=== PATIENT | female | born 2000 | race Caucasian/White ===

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

== ENCOUNTER 2019-06-22 02:07 | Emergency (ER) | payer MEDICAID ==
[~2019-06-22] VITALS: Ht 170.2 cm; Wt 86.2 kg
[2019-06-22] MEDS ORDERED: TOPAMAX50 MG PO (02:22)
[2019-06-22] MEDS ORDERED: PHENERGAN25 M1 PO (02:23)
[2019-06-22] MEDS ORDERED: TORADOL10 MG PO (02:23)
[2019-06-22 02:24] VITALS: Ht 170.2 cm; Wt 86.2 kg
[2019-06-22] MEDS ORDERED: ZOLOFT50 MG PO (02:24)
[2019-06-22 03:00] LABS: BASOPHILS 0.2 % (0-2); EOSINOPHILS 2.7 % (0-7); HEMATOCRIT 40.7 % (36.0-48.0); HEMOGLOBIN 14.1 g/dL (12-16); IMMATURE GRANULOCYTES 0.2 % (0-5); LYMPHOCYTES 29.9 % (15-50); MCH 31.1 pg (26.0-34.0); MCHC 34.6 g/dL (31.0-37.0); MCV 89.8 fL (80.0-100.0); MEAN PLATELET VOLUME 10.5 fL (7.4-10.4); MONOCYTES 5.7 % (2-11); NEUTROPHILS 61.3 % (40-80); PLATELET COUNT 302 10x3/uL (130-400); RBC 4.53 10x6/uL (4.00-5.40); RDW 13.1 % (11.5-14.5); WBC 11.3 10x3/uL (4.8-10.8)
[2019-06-22 03:03] LABS: CALC OSMOLALITY 284 mosm/kg (275-300); CALCIUM 9.1 mg/dL (8.5-10.1); CARBON DIOXIDE 28.3 mmol/L (21.0-32.0); CHLORIDE - SERUM 105 mmol/L (98-107); CREATININE - SERUM 0.8 mg/dL (0.6-1.3); GLUCOSE 120 mg/dL (74-106); POTASSIUM - SERUM 3.4 mmol/L (3.5-5.1); SODIUM 143 mmol/L (136-145); UREA NITROGEN 10 mg/dL (7-18); eGFR NON AFRICAN AMERICAN > 90 mL/min (90-120)
[2019-06-22 03:08] LABS: APPEARANCE CLEAR (CLEAR); BILIRUBIN NEGATIVE (NEGATIVE); COLOR YELLOW (YELLOW); GLUCOSE NEGATIVE (NEGATIVE); HCG SERUM NEGATIVE (NEGATIVE); KETONE NEGATIVE (NEGATIVE); NITRITE NEGATIVE (NEGATIVE); PROTEIN NEGATIVE (NEGATIVE); SPECIFIC GRAVITY 1.015 (1.005-1.020); UROBILINOGEN NORMAL (NORMAL)
[2019-06-22 03:09] LABS: BACTERIA FEW /hpf (NEGATIVE); EPITHELIAL CELLS 0-5 /hpf (0-5); RED CELLS - URINE 0-5 /hpf (0-5); WHITE CELLS - URINE 0-5 /hpf (NEGATIVE)
[2019-06-22 03:10] LABS: ALBUMIN 3.8 g/dL (3.4-5.0); ALKALINE PHOSPHATASE 114 U/L (46-116); ALT (SGPT) 30 U/L (10-68); AMYLASE - SERUM 14 U/L (25-115); BILIRUBIN - TOTAL 0.56 mg/dL (0.2-1.3); LIPASE 95 U/L (73-393); PROTEIN - SERUM 7.6 g/dL (6.4-8.2)
[2019-06-22] MEDS ORDERED: PEPCID40 MG PO (05:59)
[2019-06-22] MEDS ORDERED: ZOFRAN ODT4 MG/UDTAB PO (05:59)
[2019-06-22 06:07] VITALS: BP 121/79
== END 2019-06-22 06:07 | disposition home or self-care (01) ==
LOC: D.ER 02:07
PROVIDERS: Family Medicine
DX: K52.9 Noninfective gastroenteritis and colitis, unspecified (principal); K29.70 Gastritis, unspecified, without bleeding

== ENCOUNTER 2019-11-29 12:07 | Emergency (ER) | payer MEDICAID ==
[~2019-11-29] VITALS: Ht 170.2 cm; Wt 90.9 kg
[~2019-11-29 12:07] MED LIST changes: +PEPCID40 MG PO; +PHENERGAN25 M1 PO; +TOPAMAX50 MG PO; +TORADOL10 MG PO; +ZOFRAN ODT4 MG/UDTAB PO; +ZOLOFT50 MG PO
[2019-11-29 12:18] VITALS: Ht 170.2 cm; Wt 90.9 kg
[2019-11-29] MEDS ORDERED: SEROQUEL100 MG PO (12:21)
[2019-11-29] MEDS ORDERED: LAMICTAL200 M1 PO (12:21)
[2019-11-29] MEDS ORDERED: KLONOPIN1 MG PO (12:22)
[2019-11-29] MEDS ORDERED: SINGULAIR10 MG PO (12:22)
[2019-11-29] MEDS ORDERED: NEURONTIN600 MG PO (12:22)
[2019-11-29] MEDS ORDERED: CYCLOBENZAPRINE10 MG PO ×2 (12:23→20:43)
[2019-11-29] MEDS ORDERED: METHOCARBAMOL500 MG PO (12:23)
[2019-11-29 15:23] LABS: BILIRUBIN NEGATIVE (NEGATIVE); GLUCOSE NEGATIVE (NEGATIVE); HCG URINE NEGATIVE (NEGATIVE); KETONE NEGATIVE (NEGATIVE); NITRITE NEGATIVE (NEGATIVE); UROBILINOGEN NORMAL (NORMAL)
[2019-11-29] MEDS ORDERED: HYDROCODON-ACE1 EAC7 PO (20:43)
[2019-11-29 20:53] VITALS: BP 132/79
== END 2019-11-29 20:53 | disposition home or self-care (01) ==
LOC: D.ER 12:07
PROVIDERS: Family Medicine
DX: M54.32 Sciatica, left side (principal); M48.061 Spinal stenosis, lumbar region without neurogenic claudication; K21.9 Gastro-esophageal reflux disease without esophagitis

== ENCOUNTER 2020-03-25 13:05 | Inpatient (IN) | payer MEDICAID ==
[~2020-03-25] VITALS: Ht 170.2 cm; Wt 98.6 kg
--- NOTE | ~2020-03-25 | OP ---
PATIENT NAME: AN TESFAYE MEDICAL RECORD: [id number] :99 LOCATION:[id number] ADMISSION DATE:03/25/20 SURGEON: MIKE CULP MD DATE OF OPERATION: 03/26/2020 PREOPERATIVE DIAGNOSES: 1. Acute appendicitis with localized peritonitis. 2. Irritable bowel syndrome. POSTOPERATIVE DIAGNOSES: 1. Acute appendicitis with localized peritonitis. 2. Irritable bowel syndrome. PROCEDURE: Laparoscopic appendectomy. SURGEON: Mike Culp MD REPORT OF PROCEDURE: The patient's abdomen was prepped and draped in sterile fashion. A cutdown was made on the superior aspect of the umbilicus, 0 Vicryls were placed in the fascia bilaterally and the fascia was incised with a 15-blade. I then bluntly entered the peritoneal cavity and placed a 12-mm Elizabeth port. Under direct visualization, a 5-mm trocar was placed in the left lower quadrant and another was placed in the suprapubic region. There was a lot inflammatory changes in the patient's right lower quadrant. As we peeled back the omentum, we were able to see severely inflamed and swollen appendix with no signs of gangrene or perforation. There was no surrounding fluid collections. We were able to dissect this appendix off of its surrounding attachments and eventually made a window at the base of the mesoappendix. The mesoappendix was then transected with a 45 white load Endo-THUAN stapler. The appendix was then transected at its cecal base using a 45 blue load Endo-THUAN stapler. The appendix was placed into an Endo Catch bag. We irrigated out the right lower quadrant and assured there was no sign of any bleeding. The ports and insufflation were then removed and the appendix was taken out through the umbilicus. The umbilical fascia was closed with interrupted 0 Vicryls times 3. The wounds were then irrigated out with normal saline and infused with 10 mL of 0.25% Marcaine with epinephrine. The skin incisions were closed with subcutaneous 5-0 Monocryl and dressed appropriately. COMPLICATIONS: None. CONDITION: Stable. ANESTHESIA: General endotracheal and local. BLOOD LOSS: Minimal. TRANSINT:[id number] Voice Confirmation ID: [id number] DOCUMENT ID: [id number] OPERATIVE REPORT [id number] AN TESFAYE MIKE CULP MD CC: [id number] DICTATION DATE: 03/26/20 1132 ACCREDITATION MANAGER: 03/26/20 1344 ADM IN [facility] [address] [facility]
[~2020-03-25 13:05] MED LIST changes: +CYCLOBENZAPRINE10 MG PO; +HYDROCODON-ACE1 EAC7 PO; +KLONOPIN1 MG PO; +LAMICTAL200 M1 PO; +METHOCARBAMOL500 MG PO; +NEURONTIN600 MG PO; +SEROQUEL100 MG PO; +SINGULAIR10 MG PO
[2020-03-25 13:24] LABS: BILIRUBIN NEGATIVE (NEGATIVE); KETONE SMALL mg/dL (NEGATIVE); NITRITE NEGATIVE (NEGATIVE); UROBILINOGEN NORMAL (NORMAL)
[2020-03-25 13:25] LABS: HCG URINE NEGATIVE (NEGATIVE)
[2020-03-25 13:37] LABS: BASOPHILS 0.1 % (0-2); EOSINOPHILS 0.3 % (0-7); HEMATOCRIT 42.9 % (36.0-48.0); HEMOGLOBIN 15.1 g/dL (12-16); IMMATURE GRANULOCYTES 0.4 % (0-5); LYMPHOCYTES 6.9 % (15-50); MCH 32.3 pg (26.0-34.0); MCHC 35.2 g/dL (31.0-37.0); MCV 91.7 fL (80.0-100.0); MEAN PLATELET VOLUME 10.5 fL (7.4-10.4); MONOCYTES 4.9 % (2-11); NEUTROPHILS 87.4 % (40-80); PLATELET COUNT 269 10x3/uL (130-400); RBC 4.68 10x6/uL (4.00-5.40); RDW 13.2 % (11.5-14.5); WBC 15.5 10x3/uL (4.8-10.8)
[2020-03-25 13:43] LABS: CALC OSMOLALITY 279 mosm/kg (275-300); CALCIUM 9.5 mg/dL (8.5-10.1); CARBON DIOXIDE 24.1 mmol/L (21.0-32.0); CHLORIDE - SERUM 103 mmol/L (98-107); GLUCOSE 139 mg/dL (74-106); SODIUM 140 mmol/L (136-145); UREA NITROGEN 9 mg/dL (7-18); eGFR NON AFRICAN AMERICAN 75 mL/min (90-120)
[2020-03-25 13:49] LABS: ALBUMIN 3.9 g/dL (3.4-5.0); ALKALINE PHOSPHATASE 102 U/L (30-120); ALT (SGPT) 14 U/L (10-68); AMYLASE - SERUM 15 U/L (25-115); BILIRUBIN - TOTAL 1.27 mg/dL (0.2-1.3); LIPASE 39 U/L (73-393); PROTEIN - SERUM 8.1 g/dL (6.4-8.2)
--- NOTE | 2020-03-25 14:45 | NUR ---
PT LAYING IN BED NO DISTRESS NOTED. SO AT BEDSIDE WILL CONTINUE TO MONITOR.
[2020-03-25 14:51] VITALS: BP 148/84
[2020-03-25 15:01] VITALS: BP 158/83
[2020-03-25 16:00] VITALS: BP 121/79
[2020-03-25 17:00] VITALS: BP 109/65
--- NOTE | 2020-03-25 17:05 | NUR ---
COVID SWAB OBTAINED. RESPIRATIONS ARE EVEN AND UNLABORED. NO DISTRESS NOTED. WILL CONTINUE TO MONITOR.
--- NOTE | 2020-03-25 17:34 | NUR ---
PT C/O NAUSEA ADMINISTERED PRN ZOFRAN.
--- NOTE | 2020-03-25 18:06 | NUR ---
ARRIVED TO UNIT PER W/C, WILL REVIEW ORDERS, FAMILY PRESENT
[2020-03-25 18:10] VITALS: BP 133/77
[2020-03-25] MEDS ORDERED: KLONOPIN1 MG (18:32)
[2020-03-25] MEDS ORDERED: LAMICTAL200 M1 (18:34)
[2020-03-25] MEDS ORDERED: HYDROCODON-ACE1 EA10 PO ×2 (18:35→18:36)
[2020-03-25] MEDS ORDERED: ED-SPAZ0.125 MG PO (18:40)
[2020-03-25] MEDS ORDERED: LINZESS72 MCG PO (18:41)
[2020-03-25] MEDS ORDERED: ZONISAMIDE50 MG PO (18:42)
--- NOTE | 2020-03-25 20:00 | NUR ---
SUPINE IN BED, A&O X 4. PAIN 10/10 TO ABDOMEN. S/O AT BEDSIDE. CONSENT INFORMATION PACKETS GIVEN. WISHES TO SPEAK WITH ANESTHESIOLOGIST PRIOR TO SURGERY. CTM.
[2020-03-26 02:42] VITALS: BP 133/77; BMI 34.0
[2020-03-26 06:14] LABS: BASOPHILS 0.1 % (0-2); EOSINOPHILS 0.2 % (0-7); HEMATOCRIT 38.3 % (36.0-48.0); HEMOGLOBIN 13.1 g/dL (12-16); IMMATURE GRANULOCYTES 0.3 % (0-5); MCH 31.3 pg (26.0-34.0); MCHC 34.2 g/dL (31.0-37.0); MCV 91.6 fL (80.0-100.0); MEAN PLATELET VOLUME 10.3 fL (7.4-10.4); MONOCYTES 6.2 % (2-11); NEUTROPHILS 85.2 % (40-80); PLATELET COUNT 239 10x3/uL (130-400); RBC 4.18 10x6/uL (4.00-5.40); RDW 13.2 % (11.5-14.5); WBC 15.6 10x3/uL (4.8-10.8)
[2020-03-26 06:49] VITALS: BP 121/73
[2020-03-26 07:03] LABS: ALKALINE PHOSPHATASE 84 U/L (30-120); ALT (SGPT) 17 U/L (10-68); BILIRUBIN - TOTAL 1.64 mg/dL (0.2-1.3); CALCIUM 8.2 mg/dL (8.5-10.1); CARBON DIOXIDE 21.6 mmol/L (21.0-32.0); CHLORIDE - SERUM 103 mmol/L (98-107); CREATININE - SERUM 0.8 mg/dL (0.6-1.3); GLUCOSE 103 mg/dL (74-106); POTASSIUM - SERUM 3.4 mmol/L (3.5-5.1); PROTEIN - SERUM 6.2 g/dL (6.4-8.2); SODIUM 138 mmol/L (136-145); eGFR NON AFRICAN AMERICAN > 90 mL/min (90-120)
[2020-03-26 07:04] LABS: CALC OSMOLALITY 272 mosm/kg (275-300); UREA NITROGEN 5 mg/dL (7-18)
[2020-03-26 08:28] VITALS: Ht 170.2 cm; Wt 98.6 kg
[2020-03-26 09:03] VITALS: BP 125/73
[2020-03-26] MEDS ORDERED: HYDROCODON-ACE1 EA10 PO (11:33)
[2020-03-26] MEDS ORDERED: BACTRIM DS TAB1 EAC1 PO (11:34)
[2020-03-26 12:02] VITALS: BP 124/63
--- NOTE | 2020-03-26 15:36 | NUR ---
DISCHARGE PAPERWORK SIGNED, ALL QUESTIONS ANSWERED. IV TO LEFT AC DC'D, TIP INTACT. ESCORTED OUT VIA WHEELCHAIR.
== END 2020-03-26 15:38 | disposition home or self-care (01) | DRG 343 ==
LOC: D.ER 13:05 → D.MS 14:54
PROVIDERS: Family Medicine; ADMIT Surgery; ATTEND Surgery
PROC: 0DTJ4ZZ Resection of Appendix, Percutaneous Endoscopic Approach (ICD-10-PCS; principal; 2020-03-26 09:00)
DX: K35.30 Acute appendicitis with localized peritonitis, without perforation or gangrene (principal); K58.9 Irritable bowel syndrome, unspecified; K21.9 Gastro-esophageal reflux disease without esophagitis; F17.200 Nicotine dependence, unspecified, uncomplicated